=== PATIENT | male | born 2005 | race Caucasian/White ===

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

== ENCOUNTER → 2023-05-27 | Emergency (ER) | payer OTHER, SELFPAY ==
[~2023-05-27] MED LIST: IBUPROFEN 400 MG TAB ONE
--- OUTSIDE RECORDS SUMMARY | 2023-05-27 19:23 | XMS REPORT | Continuity of Care Document ---
Author Name Unknown Address [address] [place] [address] [employer] Address [address] [place] [address] [address] [place] [address] Care Team Providers Care Stock Broker Name Role Phone Unavailable Unavailable Unavailable Results Test Description Test Time Test Comments Results Result Co mments Source CULTURE, URINE 2022 09:46:56 SPECIMEN NUMBER: [id number] CULTURE, URINE SPECIMEN NUMBER: [id number] SPECIMEN COMMENT: URINE SOURCE: URINE REPORT STATUS: FINAL FINAL REPORT: 2022 10-50,000 CFU/ML UROGENITAL SIMON PRESENT NO COMMON PATHOGENS
--- NOTE | 2023-05-27 21:24 | RAD REPORT ---
EXAM DESCRIPTION: RAD -Hand Left 3 View - 05/27/2023 8:25 pm CLINICAL HISTORY: Left hand pain status post injury FINDINGS: Small bulge is present along proximal metaphysis first metacarpal. This probably is a norm al finding. If this is the site of injury and the patient has point tenderness this would indicate a buckle fracture. Otherwise, no fracture or dislocation noted.
--- NOTE | 2023-05-27 21:39 | ER ---
Nurse's Notes [facility] Name: Brandon Montanez Age: 18 yrs Sex: Male : 2005 Arrival Date: 05/27/2023 Time: 19:19 Bed 10 Private MD: Diagnosis: Nondisplaced fracture first metacarpal left hand Presentation: 05/27 19:29 Chief complaint: Patient states: Fell while skating and caught himself with his left cm10 hand. Pt noted to have swelling to left hand between thumb and index finger. Coronavirus screen: Vaccine status: Patient reports receiving the 2nd dose of the covid vaccine. Client denies travel out of the [place] in the last 14 days. Ebola Screen: Patient denies travel to an Ebola-affected area in the 21 days before illness onset. No symptoms or risks identified at this time. Initial Sepsis Screen: Does the patient meet any 2 criteria? No. Patient's initial sepsis screen is negative. Does the patient have a suspected source of infection? No. Patient's initial sepsis screen is negative. Risk Assessment: Do you want to hurt yourself or someone else? Patient reports no desire to harm self or others. Onset of symptoms was May 27, 2023. 19:29 Method Of Arrival: Ambulatory 10 19:29 Acuity: CYNTHIA 4 cm10 Triage Assessment: 22:30 General: Appears in no apparent distress. comfortable, Behavior is calm, cooperative. cm10 Injury Description: Fall. Historical: - Allergies: 19:29 No Known Allergies; cm10 - PMHx: 19:29 ADD/ADHD; Asthma; Bipolar disorder; cm10 - Immunization history:: Adult Immunizations up to date. - Social history:: Smoking status: Patient reports the use of cigarette tobacco products, denies chronic smoking, but will smoke occasionally, Reported history of juuling and/or vaping. Screenin:47 [facility] ED Fall Risk Assessment (Adult) History of falling in the last 3 months, ap3 including since admission No falls in past 3 months (0 pts). Abuse screen: Denies threats or abuse. Nutritional screening: No deficits noted. Tuberculosis screening: No symptoms or risk factors identified. Assessment: 19:47 General: Appears in no apparent distress. Behavior is calm, cooperative, appropriate ap3 for age. Pain: Complains of pain in left hand Pain currently is 5 out of 10 on a pain scale. Neuro: Level of Consciousness is awake, alert, obeys commands, Oriented to person, place, time, situation. Cardiovascular: Patient's skin is warm and dry. Respiratory: Airway is patent Respiratory effort is even, unlabored, Respiratory pattern is regular, symmetrical. Musculoskeletal: Swelling present in left hand. Vital Signs: 19:29 BP 128 / 81; Pulse 104; Resp 18; Temp 99.2(TE); Pulse Ox 100% on R/A; Weight 52.16 kg; cm10 Height 6 ft. 0 in. ; Pain 6/10; 19:29 Body Mass Index 15.60 (52.16 kg, 182.88 cm) cm10 19:29 Pain Scale: Adult cm10 ED Course: 19:25 Patient arrived in ED. gm2 19:25 Genevieve Medrano [facility]-C [facility]. kb 19:26 Ines Martinez MD is Attending Physician. kb 19:30 Triage completed. cm10 19:30 Arm band placed on Patient placed in an exam room, on a stretcher. cm10 19:38 Rosita Williamson, ELISEO is Primary Nurse. ap3 19:48 Patient has correct armband on for positive identification. Bed in low position. Call ap3 light in reach. 20:27 Hand Left 3 View XRAY In Process Unspecified. EDMS 22:29 No provider procedures requiring assistance completed. Patient did not have IV access cm10 during this emergency room visit. Orthoglass splint: Thumb spica splint applied on left forearm. 22:30 Provided Education on: Follow-up instructions.. cm10 Administered Medications: 19:47 Drug: Ibuprofen PO 400 mg PO once Route: PO; ap3 22:24 Follow up: Response: No adverse reaction as6 Medication: 19:48 VIS not applicable for this client. ap3 Outcome: 21:39 Discharge ordered by . kb 22:30 Discharged to home ambulatory, with family, cm10 22:30 Condition: good 22:30 Discharge instructions given to patient, Instructed on discharge instructions, follow up and referral plans. Demonstrated understanding of instructions, follow-up care, splint care, 22:31 Patient left the ED. cm10 Signatures: Dispatcher [employer] EDMS Genevieve Medrano FNP-C FNP-Rosita Dixon, RN RN ap3 Huang Weldon, RN RN as6 Mary Osullivan, RN RN cm10 Alondra Morel gm2
--- NOTE | 2023-05-27 21:39 | EDPHYS ---
Physician Documentation [facility] Name: Brandon Montanez Age: 18 yrs Sex: Male : 2005 Arrival Date: 05/27/2023 Time: 19:19 Bed 10 Private MD: ED Physician Ines Maritnez HPI: 05/27 20:53 This 18 yrs old Male presents to ER via Ambulatory with complaints of Hand Injury. 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 . Historical: - Allergies: 19:29 No Known Allergies; cm10 - PMHx: 19:29 ADD/ADHD; Asthma; Bipolar disorder; cm10 - Immunization history:: Adult Immunizations up to date. - Social history:: Smoking status: Patient reports the use of cigarette tobacco products, denies chronic smoking, but will smoke occasionally, Reported history of juuling and/or vaping. ROS: 20:52 Constitutional: Negative for fever, chills, and weight loss, kb 20:52 MS/extremity: Positive for ecchymosis, pain, swelling, tenderness, of the left hand, 20:52 All other systems are negative, Exam: 20:52 Constitutional: This is a well developed, well nourished patient who is awake, alert, kb and in no acute distress. Head/Face: Normocephalic, atraumatic. ENT: Moist Mucous membranes Cardiovascular: Regular rate Respiratory: Respirations even and unlabored. No increased work of breathing. Talking in full sentences Skin: Warm, dry with normal turgor. Normal color. Neuro: Awake and alert, GCS 15, oriented to person, place, time, and situation. Moves all extremities. Normal gait. 20:52 Musculoskeletal/extremity: Extremities: grossly normal except: noted in the left hand: contusion, decreased ROM, ecchymosis, pain, swelling, tenderness, ROM: limited active range of motion due to pain, Circulation is intact in all extremities. Sensation intact. Vital Signs: 19:29 BP 128 / 81; Pulse 104; Resp 18; Temp 99.2(TE); Pulse Ox 100% on R/A; Weight 52.16 kg; cm10 Height 6 ft. 0 in. ; Pain 10/25; 19:29 Body Mass Index 15.60 (52.16 kg, 182.88 cm) cm10 19:29 Pain Scale: Adult cm10 MDM: 19:26 Patient medically screened. kb 20:53 Differential diagnosis: dislocation, closed fracture, contusion. Data reviewed: vital kb signs, nurses notes. 21:30 Counseling: I had a detailed discussion with the patient and/or guardian regarding the kb historical points, exam findings, and any diagnostic results supporting the discharge/admit diagnosis, radiology results, the need for outpatient follow up, a orthopedic surgeon, to return to the emergency department if symptoms worsen or persist or if there are any questions or concerns that arise at home. 21:30 Independent interpretation of the following test(s) in the Emergency Department X-Ray: kb My interpretation is buckle fracture first metacarpal. 05/27 19:28 Order name: Hand Left 3 View XRAY; Complete Time: 21:30 kb 05/27 21:38 Order name: Thumb Spica Splint; Complete Time: 22:24 kb Administered Medications: 19:47 Drug: Ibuprofen PO 400 mg PO once Route: PO; ap3 22:24 Follow up: Response: No adverse reaction as6 Disposition Summary: 05/27/23 21:39 Discharge Ordered Notes: Location: Home kb Condition: Stable kb Diagnosis - Nondisplaced fracture first metacarpal left hand kb Followup: kb - With: Emergency Department - When: As needed - Reason: Worsening of condition Followup: kb - With: Private Physician - When: 2 - 3 days - Reason: Recheck today's complaints, Continuance of care, Re-evaluation by your physician Discharge Instructions: - Discharge Summary Sheet kb - Metacarpal Fracture, [id number] kb Forms: - Medication Reconciliation Form kb - Thank You Letter kb - Antibiotic Education kb - Prescription Opioid Use kb - Patient Portal Instructions kb - Leadership Thank You Letter kb Signatures: Dispatcher [employer] Genevieve Arzate FNP-C FNP-Rosita Dixon RN RN ap3 Mary Osullivan RN RN cm10 Huang Weldon RN as6
[2023-05-28 03:10] VITALS: BP 128/81; TEMP 99.2; O2SAT 100
== END ==
LOC: ER 19:19
DX: S62.202A Unspecified fracture of first metacarpal bone, left hand, initial encounter for closed fracture (principal)

== ENCOUNTER → 2023-06-11 | Emergency (ER) | payer SELFPAY ==
[~2023-06-11] MED LIST changes: +FENTANYL CITR 100 MCG/2 ML ONE; -IBUPROFEN 400 MG TAB ONE; +KETOROLAC 30 MG/ML INJ ONE; +NA CHLORIDE 0.9% 1,000 ML ONE
[2023-06-11 19:14] LABS: Absolute Lymphocytes (CBC) 2.8 K/uL (0.7-4.9); Hematocrit 36.4 % (39.6-49.0); Lymphocytes % 41.4 % (15.3-44.8); MCV 90.3 fL (80-100); MPV 8.7 fL (7.6-11.3); Platelets 189 thou/uL (152-406); RBC Red Blood Cell Count 4.03 M/uL (4.33-5.43)
[2023-06-11 19:27] LABS: Potassium 3.4 mEq/L (3.5-5.1)
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
--- NOTE | 2023-06-11 20:14 | RAD REPORT ---
EXAM DESCRIPTION: RAD - Elbow Right 3 View - 06/11/2023 7:43 pm CLINICAL HISTORY: Right elbow pain status post injury FINDINGS: No fracture or dislocation is seen. If the patient continues to have symptoms to suggest an occult fracture then follow up x-ray in 7 day s would be recommended
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
[2023-06-12 02:19] VITALS: BP 111/75; TEMP 98.6; O2SAT 99
== END ==
LOC: ER 18:32
DX: R58 Hemorrhage, not elsewhere classified (principal); M54.2 Cervicalgia; V29.408A Other motorcycle driver injured in collision with unspecified motor vehicles in traffic accident, initial encounter; Y92.410 Unspecified street and highway as the place of occurrence of the external cause; J45.909 Unspecified asthma, uncomplicated; F31.9 Bipolar disorder, unspecified; F17.210 Nicotine dependence, cigarettes, uncomplicated
CPT/HCPCS: 36415; 70450; 71260; 72125; 74177; 80048; 85025; 86850; 86900; 86901; 96361; 96374; 96375; 99285; J3010; J7030; Q9967

== ENCOUNTER → 2023-06-14 | Emergency (ER) | payer SELFPAY ==
--- OUTSIDE RECORDS SUMMARY | 2023-06-14 21:50 | XMS REPORT | Continuity of Care Document ---
Author Name Unknown Address [address] [place] [address] [facility] [employer] Address [address] [place] [address] Care Team Providers Care Supervisor [employer] Name Role Phone KAMINI DELGADO Attending Clinician Un available KAMINI DELGADO Admitting Clinician Un available Encounters Start Date/Time End Date/Time Encounter Type Admission Type Attending Clinicians Care Facility Care Department Encounter ID Source 2023-06-12 00:30:00 2023-06-12 06:08:00 Emergency E KAMINI DELGADO [facility] [id number] [address] [place] [address]
--- NOTE | 2023-06-14 23:11 | ER ---
Nurse's Notes [facility] Name: Brandon Montanez Age: 18 yrs Sex: Male : 2005 Arrival Date: 06/14/2023 Time: 21:46 Bed 6 Private MD: Diagnosis: Encounter for change or removal of nonsurgical wound dressing Presentation: 06/14 21:58 Chief complaint: Patient states: pt has some gauze dried to a healing abrasion on his as6 right hip. Coronavirus screen: At this time, the client does not indicate any symptoms associated with coronavirus-19. Ebola Screen: No symptoms or risks identified at this time. Initial Sepsis Screen: Does the patient meet any 2 criteria? No. Patient's initial sepsis screen is negative. Does the patient have a suspected source of infection? No. Patient's initial sepsis screen is negative. Risk Assessment: Do you want to hurt yourself or someone else? Patient reports no desire to harm self or others. Onset of symptoms was June 14, 2023. 21:58 Acuity: CYNTHIA 5 as6 21:58 Method Of Arrival: Ambulatory as6 Historical: - Allergies: 21:57 No Known Allergies; as6 - PMHx: 21:57 ADD/ADHD; Bipolar disorder; Asthma; as6 - PSHx: 21:57 None; as6 - Immunization history:: Adult Immunizations up to date. - Social history:: Smoking status: Reported history of juuling and/or vaping. - Family history:: not pertinent. - Hospitalizations: : No recent hospitalization is reported. Screenin:05 [facility] ED Fall Risk Assessment (Adult) History of falling in the last 3 months, ha1 including since admission No falls in past 3 months (0 pts) Confusion or Disorientation No (0 pts) Intoxicated or Sedated No (0 pts) Impaired Gait No (0 pts) Mobility Assist Device Used No (0 pt) Altered Elimination No (0 pt) Score/Fall Risk Level 0 - 2 = Low Risk Oriented to surroundings, Maintained a safe environment, Hourly rounding (assess needs \T\ fall precautionary measures) done. Abuse screen: Denies threats or abuse. Denies injuries from another. Nutritional screening: No deficits noted. Tuberculosis screening: No symptoms or risk factors identified. Assessment: 21:53 General: Appears comfortable, Behavior is appropriate for age. Pain: Complains of pain ha1 in DRIED GAUZE ON WOUND AT RIGHT HIP Pain does not radiate. Pain currently is 7 out of 10 on a pain scale. Neuro: Level of Consciousness is awake, alert, obeys commands, Oriented to person, place, time, situation. Cardiovascular: Patient's skin is warm and dry. Respiratory: Airway is patent Respiratory effort is even, unlabored, Respiratory pattern is regular, symmetrical. GI: No signs and/or symptoms were reported involving the gastrointestinal system. Derm: Wound noted RIGTH HIP, RIGTH KNEE AND LEFT KNEE. Musculoskeletal: Circulation, motion, and sensation intact. 22:50 Reassessment: Patient and/or family updated on plan of care and expected duration. Pain ha1 level reassessed. Patient is alert, oriented x 3, equal unlabored respirations, skin warm/dry/pink. 23:40 Reassessment: Patient and/or family updated on plan of care and expected duration. Pain ha1 level reassessed. Patient is alert, oriented x 3, equal unlabored respirations, skin warm/dry/pink. Vital Signs: 21:58 BP 124 / 71; Pulse 84; Resp 18 S; Temp 98; Pulse Ox 100% on R/A; Weight 54.43 kg (R); as6 Height 6 ft. 0 in. (R); Pain 0/10; 23:00 BP 118 / 71; Pulse 74; Resp 17 S; Pulse Ox 100% on R/A; ha1 21:58 Body Mass Index 16.27 (54.43 kg, 182.88 cm) as6 21:58 Pain Scale: Adult as6 ED Course: 21:51 Patient arrived in ED. ag3 21:51 Orlando Nino MD is Attending Physician. rn 21:53 Patient has correct armband on for positive identification. Placed in gown. Bed in low ha1 position. Call light in reach. Side rails up X 1. Adult w/ patient. 21:57 Arm band placed on. as6 21:59 Triage completed. as6 23:42 Provided Education on: wound care . ha1 23:42 No provider procedures requiring assistance completed. Patient did not have IV access ha1 during this emergency room visit. Administered Medications: No medications were administered Medication: 22:05 VIS not applicable for this client. ha1 Outcome: 23:10 Discharge ordered by . rn 23:42 Discharged to home ambulatory, with family, ha1 23:42 Condition: stable 23:42 Discharge instructions given to patient, family, Instructed on discharge instructions, follow up and referral plans. Demonstrated understanding of instructions, follow-up care, wound care, 23:43 Patient left the ED. ha1 Signatures: Orlando Nino MD MD rn Gomez, Alice ag3 Huang Weldon RN RN as6 Justine Woodard RN RN ha1
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
[2023-06-15 01:34] VITALS: BP 118/71; TEMP 98; O2SAT 100
== END ==
LOC: ER 21:46
DX: Z48.00 Encounter for change or removal of nonsurgical wound dressing (principal)
CPT/HCPCS: 93005

== ENCOUNTER 2023-10-18 22:15 | Emergency (ER) | payer OTHER, SELFPAY ==
[2023-10-18] MEDS ORDERED: IBUPROFEN 400 MG TAB ONE (22:37)
[2023-10-18 23:36] LABS: SARS-CoV-2 Antigen CONTROL BLUE LINE VIS/BG OK; SARS-CoV-2 Antigen Rapid Res Negative (Negative)
--- NOTE | 2023-10-18 23:41 | EDPHYS ---
Physician Documentation [facility] Name: Brandon Montanez Age: 18 yrs Sex: Male : 2005 Arrival Date: 10/18/2023 Time: 22:15 Bed 9 Private MD: ED Physician Perry Jimenez HPI: 10/18 00:22 This 18 yrs old Male presents to ER via Ambulatory with complaints of Sore Throat, rt Congestion, Headache. 00:22 Patient presents to the ED with sore throat, nasal congestion for 2 days. Denies cough, rt difficulty breathing. Denies other acute complaints, symptoms are mild in severity, no other aggravating or alleviating factors.. Historical: - Allergies: 10/17 22:33 Bees; as6 - PMHx: 22:33 ADD/ADHD; Asthma; Bipolar disorder; as6 - PSHx: 22:33 None; as6 - Immunization history:: Adult Immunizations up to date. - Infectious Disease History:: Denies. - Social history:: Smoking status: Patient uses street drugs, marijuana. - Family history:: not pertinent. ROS: 10/18 00:23 Constitutional: Negative for fever, chills, and weight loss, Cardiovascular: Negative rt for chest pain, palpitations, and edema, Respiratory: Negative for shortness of breath, cough, wheezing, and pleuritic chest pain, Abdomen/GI: Negative for abdominal pain, nausea, vomiting, diarrhea, and constipation, Skin: Negative for injury, rash, and discoloration, Neuro: Negative for headache, weakness, numbness, tingling, and seizure, ENT: Positive for sinus congestion, sore throat, Exam: 00:23 Constitutional: This is a well developed, well nourished patient who is awake, alert, rt and in no acute distress. Head/Face: Normocephalic, atraumatic. Chest/axilla: Normal chest wall appearance and motion. Nontender with no deformity. No lesions are appreciated. Cardiovascular: Regular rate and rhythm with a normal S1 and S2. No gallops, murmurs, or rubs. Normal PMI, no JVD. No pulse deficits. Respiratory: Lungs have equal breath sounds bilaterally, clear to auscultation and percussion. No rales, rhonchi or wheezes noted. No increased work of breathing, no retractions or nasal flaring. Abdomen/GI: Soft, non-tender, with normal bowel sounds. No distension or tympany. No guarding or rebound. No evidence of tenderness throughout. MS/ Extremity: Pulses equal, no cyanosis. Neurovascular intact. Full, normal range of motion. Neuro: Awake and alert, GCS 15, oriented to person, place, time, and situation. Cranial nerves II-XII grossly intact. Motor strength 5/5 in all extremities. Sensory grossly intact. Cerebellar exam normal. Normal gait. 00:23 ENT: 2+ tonsils, symmetric, posterior pharyngeal erythema with exudates, uvula is midline. Vital Signs: 10/17 22:32 BP 118 / 60; Pulse 53; Resp 18; Temp 101.3(TE); Pulse Ox 98% on R/A; Weight 52.16 kg as6 (R); Height 6 ft. 0 in. (R); Pain 7/10; 23:57 BP 114 / 62; Pulse 65; Resp 18; Temp 100.1; Pulse Ox 99% ; vc1 22:32 Body Mass Index 15.60 (52.16 kg, 182.88 cm) as6 22:32 Pain Scale: Adult as6 MDM: 23:34 Patient medically screened. rt 10/18 00:23 Differential diagnosis: Strep, viral syndrome. Data reviewed: vital signs, nurses rt notes, lab test result(s). I considered the following discharge prescriptions or medication management in the emergency department Medications were administered in the Emergency Department. See MAR. Test considered but Not performed: CT: No signs or symptoms to suggest RPA, COURT SPECIALIST, Tommie's angina, CT scan is not indicated. Counseling: I had a detailed discussion with the patient and/or guardian regarding the historical points, exam findings, and any diagnostic results supporting the discharge/admit diagnosis, lab results, the need for outpatient follow up. ED course: Posterior pharynx have strong physical exam findings consistent with streptococcal pharyngitis. Discussed with patient, mother, elected to treat empirically.. 10/17 22:35 Order name: Strep; Complete Time: 00:23 as6 10/17 22:35 Order name: Influenza Screen (a \T\ B); Complete Time: 00:23 as6 10/17 22:35 Order name: SARS RAPID; Complete Time: 23:39 as6 Administered Medications: 10/17 22:45 Drug: Ibuprofen PO 800 mg PO once Route: PO; as6 23:56 Follow up: Response: No adverse reaction; Marked relief of symptoms vc1 23:56 Drug: Dexamethasone IM 10 mg IM once Route: IM; Site: right deltoid; vc1 23:56 Follow up: Response: Medication administered at discharge. vc1 23:56 Drug: Amoxicillin-Clavulanate PO 875 mg PO once Route: PO; vc1 23:56 Follow up: Response: Medication administered at discharge. vc1 Disposition Summary: 10/18/23 23:40 Discharge Ordered Notes: Location: Home rt Problem: new rt Symptoms: are unchanged rt Condition: Stable rt Diagnosis - Acute pharyngitis, unspecified rt Followup: rt - With: Private Physician - When: 2 - 3 days - Reason: Discharge Instructions: - Discharge Summary Sheet rt - Pharyngitis rt - Sore Throat rt Forms: - Medication Reconciliation Form rt - Antibiotic Education rt - Prescription Opioid Use rt - Patient Portal Instructions rt - Leadership Thank You Letter rt Prescriptions: - Amoxicillin 875 mg Oral Tablet - take 1 tablet ORAL route every 12 hours for 10 days; 20 tablet; Refills: 0, rt Product Selection Permitted Signatures: Dispatcher [employer] Huang Galo RN RN as6 Candice Farley RN RN vc1 Perry Jimenez MD MD rt
--- NOTE | 2023-10-18 23:41 | ER ---
Nurse's Notes [facility] Name: Brandon Montanez Age: 18 yrs Sex: Male : 2005 Arrival Date: 10/18/2023 Time: 22:15 Bed 9 Private MD: Diagnosis: Acute pharyngitis, unspecified Presentation: 10/17 22:32 Chief complaint: Patient states: sore throat x2 days. Coronavirus screen: At this time, as6 the client does not indicate any symptoms associated with coronavirus-19. Ebola Screen: No symptoms or risks identified at this time. Initial Sepsis Screen: Does the patient meet any 2 criteria? No. Patient's initial sepsis screen is negative. Does the patient have a suspected source of infection? No. Patient's initial sepsis screen is negative. Risk Assessment: Do you want to hurt yourself or someone else? Patient reports no desire to harm self or others. Onset of symptoms was October 15, 2020. 22:32 Acuity: CYNTHIA 4 as6 22:32 Method Of Arrival: Ambulatory as6 Triage Assessment: 22:34 General: Appears in no apparent distress. Behavior is calm, cooperative. Pain: as6 Complains of pain in soft palate, uvula, left aspect of posterior pharynx and right aspect of posterior pharynx. EENT: Throat is reddened. Historical: - Allergies: 22:33 Bees; as6 - PMHx: 22:33 ADD/ADHD; Asthma; Bipolar disorder; as6 - PSHx: 22:33 None; as6 - Immunization history:: Adult Immunizations up to date. - Infectious Disease History:: Denies. - Social history:: Smoking status: Patient uses street drugs, marijuana. - Family history:: not pertinent. Screenin:57 [facility] ED Fall Risk Assessment (Adult) History of falling in the last 3 months, vc1 including since admission No falls in past 3 months (0 pts) Confusion or Disorientation No (0 pts) Intoxicated or Sedated No (0 pts) Impaired Gait No (0 pts) Mobility Assist Device Used No (0 pt) Altered Elimination No (0 pt) Score/Fall Risk Level 0 - 2 = Low Risk Oriented to surroundings, Maintained a safe environment, Educated pt \T\ family on fall prevention, incl call for assistance when getting out of bed. Abuse screen: Denies threats or abuse. Nutritional screening: No deficits noted. Tuberculosis screening: No symptoms or risk factors identified. Assessment: 23:00 General: Appears in no apparent distress. uncomfortable, ill, slender, Behavior is vc1 calm, cooperative, appropriate for age. Pain: Complains of pain in right aspect of posterior pharynx and left aspect of posterior pharynx. Neuro: Level of Consciousness is awake, alert, obeys commands, Oriented to person, place, time, situation, Appropriate for age. Cardiovascular: Heart tones S1 S2 Capillary refill Patient's skin is warm and dry. Respiratory: Airway is patent Respiratory effort is even, unlabored, Breath sounds are clear bilaterally. GI: No deficits noted. No signs and/or symptoms were reported involving the gastrointestinal system. GI: No deficits noted. No signs and/or symptoms were reported involving the gastrointestinal system. : No deficits noted. No signs and/or symptoms were reported regarding the genitourinary system. EENT: Throat is reddened. Derm: Skin is intact, is healthy with good turgor, Skin is dry, Skin is normal, Skin temperature is warm. Vital Signs: 22:32 BP 118 / 60; Pulse 53; Resp 18; Temp 101.3(TE); Pulse Ox 98% on R/A; Weight 52.16 kg as6 (R); Height 6 ft. 0 in. (R); Pain 7/10; 23:57 BP 114 / 62; Pulse 65; Resp 18; Temp 100.1; Pulse Ox 99% ; vc1 22:32 Body Mass Index 15.60 (52.16 kg, 182.88 cm) as6 22:32 Pain Scale: Adult as6 ED Course: 22:16 Patient arrived in ED. jj6 22:33 Triage completed. as6 22:34 Arm band placed on. as6 22:45 SARS RAPID Sent. as6 22:45 Influenza Screen (a \T\ B) Sent. as6 22:45 Strep Sent. as6 23:28 Perry Jimenez MD is Attending Physician. rt 23:57 No provider procedures requiring assistance completed. Patient did not have IV access vc1 during this emergency room visit. Administered Medications: 22:45 Drug: Ibuprofen PO 800 mg PO once Route: PO; as6 23:56 Follow up: Response: No adverse reaction; Marked relief of symptoms vc1 23:56 Drug: Dexamethasone IM 10 mg IM once Route: IM; Site: right deltoid; vc1 23:56 Follow up: Response: Medication administered at discharge. vc1 23:56 Drug: Amoxicillin-Clavulanate PO 875 mg PO once Route: PO; vc1 23:56 Follow up: Response: Medication administered at discharge. vc1 Medication: 23:58 VIS not applicable for this client. vc1 Outcome: 23:40 Discharge ordered by . rt 23:58 Patient left the ED. vc1 Signatures: Faby Isidro6 Huang Weldon RN RN as6 Candice Farley RN RN vc1 Perry Jimenez MD MD rt
[2023-10-18] MEDS ORDERED: AMOX/K CLAV 875 MG TAB ONE (23:50)
[2023-10-18] MEDS ORDERED: dexAMETHasone 10 MG/ML VIAL ONE (23:51)
[2023-10-19 01:09] VITALS: BP 114/62; TEMP 100.1; O2SAT 99
== END 2023-10-18 23:58 | disposition home or self-care (01) ==
LOC: ER 22:15
DX: J02.9 Acute pharyngitis, unspecified (principal); Z11.52 Encounter for screening for COVID-19; J45.909 Unspecified asthma, uncomplicated; F31.9 Bipolar disorder, unspecified; F12.90 Cannabis use, unspecified, uncomplicated; Z91.030 Bee allergy status
CPT/HCPCS: 36415; 87070; 87081; 87804; 87811; 96372; 99284; J1100